=== PATIENT | male | born 1960 | race Caucasian/White ===

== ENCOUNTER 2018-06-25 05:20 | Inpatient (IN) | payer OTHER ==
[~2018-06-25] VITALS: Ht 172.7 cm; Wt 95.3 kg
[~2018-06-25 05:20] MED LIST: ASA81 PO; CYM30 PO; GABA-529 PO; HYDR-4272 PO; KETO1SPR NS; LANS15CA14 PO; LOSA100T3 PO; ROSU20TA PO; TIZA4TAB11 PO
[2018-06-25] MEDS ORDERED: CEFAZOLIN 1 GM IVPB PREMIX 50 ML IV ONE (08:00)
[2018-06-25] MEDS ORDERED: LR 1,000 ML IV SCH (12:56)
[2018-06-25] MEDS ORDERED: ONDANSETRON HCL 4 MG/2 ML VIAL IVP PRN (13:00)
[2018-06-25] MEDS ORDERED: HYDROmorphone 2 MG/ML VIAL IVP PRN (13:00)
[2018-06-25] MEDS ORDERED: HYDROmorphone 1 MG INJ. 1 MG/ML AMPUL IVP PRN ×2 (13:00)
[2018-06-25] MEDS ORDERED: LR 1,000 ML IV.SOLN IV ONE (13:35)
[2018-06-25] MEDS ORDERED: fentaNYL CITRATE 250 MCG/5 ML AMP ONE (13:35)
[2018-06-25] MEDS ORDERED: ONDANSETRON HCL 4 MG/2 ML VIAL ONE ×2 (13:35→14:36)
[2018-06-25] MEDS ORDERED: PROPOFOL 200MG/ 20ML VIAL (DIPRIVAN) IV ONE (13:35)
[2018-06-25] MEDS ORDERED: SUCCINYLCHOLINE CHLORIDE 20 MG/ML(QUELICIN) ONE (13:35)
[2018-06-25] MEDS ORDERED: MIDAZOLAM HCL 5 MG/ML VIAL (VERSED) IV ONE (13:35)
[2018-06-25] MEDS ORDERED: BACITRACIN 1 GM OINT TP ONE (13:35)
[2018-06-25] MEDS ORDERED: DEXAMETHASONE SOD PHOSPHATE 4 MG/ML VIAL ONE (13:35)
[2018-06-25] MEDS ORDERED: SEVOFLURANE 15 MIN GAS INH ONE (13:35)
[2018-06-25] MEDS ORDERED: NS IRRIG SOLN 1000 ML IR ONE (13:35)
[2018-06-25] MEDS ORDERED: LIDOCAINE/EPI 1% 1:100000 20 ML VIAL INJ ONE (13:35)
[2018-06-25] MEDS ORDERED: ONDANSETRON 4 MG ODT TAB PO PRN (13:45)
[2018-06-25 15:32] VITALS: BP_SYST 129
[2018-06-25 16:04] VITALS: BP_SYST 126
[2018-06-25] MEDS: HYDROcodone/ACETAMIN 5-325 MG TAB (NORCO/ VICODIN) PO PRN (16:19)
[2018-06-25] MEDS: MORPHINE 4 MG/ML INJ. SYRINGE IVP PRN ×3 (16:44→21:56)
[2018-06-25] MEDS: KCL 20 mEq in D5/0.45NS 1000mL 1,000 ML IV SCH ×2 (17:18→20:18)
[2018-06-25 19:00] VITALS: BP_SYST 126
[2018-06-25] MEDS ORDERED: NITROGLYCERIN 0.4 MG TAB.SUBL SL PRN (19:15)
[2018-06-25 19:19] LABS: BASOPHILS % (AUTO) 0.2 % (0.0-2.0); EOSINOPHILS % (AUTO) 0.1 % (0.0-4.0); HEMATOCRIT 44.6 % (36-54); HEMOGLOBIN 14.9 g/dL (14.0-18.0); LYMPHOCYTES # (AUTO) 0.4 K/uL (1.0-5.5); LYMPHOCYTES % (AUTO) 3.2 % (20.5-51.5); MEAN CORPUSCULAR HEMOGLOBIN 29 pg (27-31); MEAN CORPUSCULAR HGB CONC 34 % (32-36); MEAN CORPUSCULAR VOLUME 86 fL (79.0-98.0); MONOCYTES # (AUTO) 0.3 K/uL (0.0-1.0); MONOCYTES % (AUTO) 2.7 % (1.7-9.3); NEUTROPHILS # (AUTO) 11.6 K/uL (1.8-7.7); NEUTROPHILS % (AUTO) 93.8 % (40.0-70.0); PLATELET COUNT (AUTO) 195 K/uL (130-430); RED BLOOD CELL COUNT(AUTO) 5.21 MIL/uL (4.2-6.2); RED CELL DISTRIBUTION WIDTH 12.9 % (9.0-15.0); WHITE BLOOD COUNT (AUTO) 12.3 K/uL (4.8-10.8)
[2018-06-25 19:22] LABS: CREATININE 1.21 mg/dL (0.55-1.30); POTASSIUM 3.6 mmol/L (3.5-5.1)
[2018-06-25 19:27] LABS: ALBUMIN 3.4 g/dL (3.4-4.8); TOTAL BILIRUBIN 1.3 mg/dL (0.0-1.0)
[2018-06-25] MEDS: ONDANSETRON HCL 4 MG/2 ML VIAL IVP PRN (19:43)
[2018-06-25 20:00] VITALS: BP_SYST 128
[2018-06-25] MEDS: tiZANidine HCL 4 MG TABLET PO SCH (21:00)
[2018-06-25 21:11] LABS: ALBUMIN 3.3 g/dL (3.4-4.8); CALCIUM 8.1 mg/dL (8.4-11.0)
[2018-06-25] MEDS: GABAPENTIN 100 MG CAPSULE PO SCH (21:39)
[2018-06-25] MEDS: CALCIUM 500 MG/TAB PO SCH (21:40)
[2018-06-25] MEDS ORDERED: ASPIRIN 81 MG TAB.CHEW PO ONE (22:30)
[2018-06-25] MEDS ORDERED: ENOXAPARIN SODIUM 30 MG/0.3 ML SYRINGE SUBCUT ONE (23:15)
[2018-06-25 23:21] VITALS: BP_SYST 108
[2018-06-26] VITALS (17 sets, daily range): BP systolic 76–118
[2018-06-26] MEDS ORDERED: ASPIRIN 81 MG TAB.CHEW PO ONE (00:15)
[2018-06-26] MEDS ORDERED: ENOXAPARIN SODIUM 30 MG/0.3 ML SYRINGE SUBCUT ONE (00:15)
[2018-06-26] MEDS: MORPHINE 4 MG/ML INJ. SYRINGE IVP PRN ×5 (00:31→10:31)
[2018-06-26] MEDS: KCL 20 mEq in D5/0.45NS 1000mL 1,000 ML IV SCH ×3 (00:37→21:10)
[2018-06-26 01:05] LABS: BILIRUBIN,URINE NEGATIVE (NEGATIVE); BLOOD, URINE NEGATIVE (NEGATIVE); CLARITY/URINE CLEAR (CLEAR); COLOR,URINE YELLOW (YELLOW); GLUCOSE,URINE NEGATIVE (NEGATIVE); KETONES,URINE NEGATIVE (NEGATIVE); LEUKOCYTE ESTERASE ,URINE NEGATIVE (NEGATIVE); NITRITE, URINE NEGATIVE (NEGATIVE); PROTEIN URINE NEGATIVE (NEGATIVE)
[2018-06-26] MEDS: CARVEDILOL 6.25 MG TABLET (COREG) PO SCH ×2 (03:38→10:32)
[2018-06-26] MEDS: LEVOTHYROXINE SODIUM 0.15 MG TABLET PO SCH (05:32)
[2018-06-26 07:39] LABS: PHOSPHORUS 3.1 mg/dL (2.7-4.5)
[2018-06-26] MEDS: GABAPENTIN 100 MG CAPSULE PO SCH ×3 (08:21→23:17)
[2018-06-26] MEDS: tiZANidine HCL 4 MG TABLET PO SCH ×2 (08:22→21:09)
[2018-06-26] MEDS: CALCIUM 500 MG/TAB PO SCH ×3 (08:22→21:08)
[2018-06-26] MEDS: ENOXAPARIN SODIUM 100 MG/ML SYRINGE SUBCUT SCH ×2 (08:35→21:12)
[2018-06-26] MEDS ORDERED: ASPIRIN 81 MG TAB.CHEW PO SCH (09:00)
[2018-06-26] MEDS ORDERED: LOSARTAN POTASSIUM 50 MG TABLET (COZAAR) PO SCH (09:00)
[2018-06-26] MEDS ORDERED: ATORVASTATIN 20 MG TABLET PO SCH (09:00)
[2018-06-26] MEDS ORDERED: PANTOPRAZOLE SODIUM 40 MG TAB PO SCH (09:00)
[2018-06-26] MEDS ORDERED: DULoxetine HCL 30 MG CAPSULE.DR (CYMBALTA) PO SCH (09:00)
[2018-06-26 10:54] LABS: CALCIUM 7.6 mg/dL (8.4-11.0)
[2018-06-26] MEDS: ONDANSETRON HCL 4 MG/2 ML VIAL IVP PRN (11:16)
[2018-06-26] MEDS ORDERED: NS 500 ML IV ONE ×3 (14:00→23:15)
[2018-06-26 15:35] LABS: BASOPHILS % (AUTO) 0.4 % (0.0-2.0); EOSINOPHILS % (AUTO) 0.2 % (0.0-4.0); HEMATOCRIT 40.7 % (36-54); HEMOGLOBIN 13.5 g/dL (14.0-18.0); LYMPHOCYTES % (AUTO) 9.9 % (20.5-51.5); MEAN CORPUSCULAR HEMOGLOBIN 29 pg (27-31); MEAN CORPUSCULAR HGB CONC 33 % (32-36); MONOCYTES # (AUTO) 0.5 K/uL (0.0-1.0); NEUTROPHILS # (AUTO) 8.1 K/uL (1.8-7.7); NEUTROPHILS % (AUTO) 84.5 % (40.0-70.0); PLATELET COUNT (AUTO) 171 K/uL (130-430); RED BLOOD CELL COUNT(AUTO) 4.63 MIL/uL (4.2-6.2); RED CELL DISTRIBUTION WIDTH 12.7 % (9.0-15.0); WHITE BLOOD COUNT (AUTO) 9.6 K/uL (4.8-10.8)
[2018-06-26 15:37] LABS: MEAN CORPUSCULAR VOLUME 88 fL (79.0-98.0)
[2018-06-26] MEDS: HYDROcodone/ACETAMIN 5-325 MG TAB (NORCO/ VICODIN) PO PRN (19:11)
[2018-06-26] MEDS ORDERED: CARVEDILOL 3.125 MG TABLET (COREG) PO SCH (21:00)
[2018-06-26 21:22] LABS: ALBUMIN 2.8 g/dL (3.4-4.8); CALCIUM 7.4 mg/dL (8.4-11.0)
[2018-06-26] MEDS ORDERED: NACL 0.9% 1,000 ML IV SCH ×2 (22:45→23:15)
[2018-06-26] MEDS ORDERED: NACL 0.9% 500 ML IV SCH ×2 (23:00→23:45)
[2018-06-26] MEDS ORDERED: NACL 0.9% 500 ML IV ONE (23:00)
[2018-06-27] VITALS (7 sets, daily range): BP systolic 87–122
[2018-06-27] MEDS: KCL 20 mEq in D5/0.45NS 1000mL 1,000 ML IV SCH (04:40)
[2018-06-27 05:51] LABS: BASOPHILS % (AUTO) 0.7 % (0.0-2.0); HEMATOCRIT 39.8 % (36-54); HEMOGLOBIN 13.1 g/dL (14.0-18.0); LYMPHOCYTES # (AUTO) 1.2 K/uL (1.0-5.5); MEAN CORPUSCULAR HEMOGLOBIN 29 pg (27-31); MEAN CORPUSCULAR HGB CONC 33 % (32-36); MEAN CORPUSCULAR VOLUME 88 fL (79.0-98.0); MONOCYTES # (AUTO) 0.6 K/uL (0.0-1.0); MONOCYTES % (AUTO) 7.3 % (1.7-9.3); PLATELET COUNT (AUTO) 157 K/uL (130-430); RED BLOOD CELL COUNT(AUTO) 4.55 MIL/uL (4.2-6.2); RED CELL DISTRIBUTION WIDTH 13.1 % (9.0-15.0)
[2018-06-27 06:06] LABS: PROTHROMBIN TIME 10.4 SECS (9.5-12.5)
[2018-06-27 06:11] LABS: CALCIUM 7.6 mg/dL (8.4-11.0); CREATININE 0.87 mg/dL (0.55-1.30); POTASSIUM 4.2 mmol/L (3.5-5.1)
[2018-06-27 06:24] LABS: ALBUMIN 2.9 g/dL (3.4-4.8)
[2018-06-27] MEDS: LEVOTHYROXINE SODIUM 0.15 MG TABLET PO SCH (06:46)
[2018-06-27 07:21] LABS: EOSINOPHILS # (AUTO) 0.1 K/uL (0.0-0.4); NEUTROPHILS # (AUTO) 6.1 K/uL (1.8-7.7)
[2018-06-27 07:22] LABS: WHITE BLOOD COUNT (AUTO) 8.4 K/uL (4.8-10.8)
== END 2018-06-27 07:37 | disposition short-term general hospital (02) | DRG 625 ==
LOC: SMU 05:20 → SDS 05:20 → STU 11:30 → SMU 11:30 → SDS 18:11 → STU 18:11 → SIC 06-26 15:18
PROVIDERS: ADMIT Otolaryngology; ATTEND Otolaryngology
PROC: 0GTH0ZZ Resection of Right Thyroid Gland Lobe, Open Approach (ICD-10-PCS; 2018-06-25)
PROC: 4A11X4G Monitoring of Peripheral Nervous Electrical Activity, Intraoperative, External Approach (ICD-10-PCS; 2018-06-25)
PROC: 0GTG0ZZ Resection of Left Thyroid Gland Lobe, Open Approach (ICD-10-PCS; principal; 2018-06-25 07:30)
DX: E04.2 Nontoxic multinodular goiter (principal); I21.4 Non-ST elevation (NSTEMI) myocardial infarction; I25.10 Atherosclerotic heart disease of native coronary artery without angina pectoris; E78.5 Hyperlipidemia, unspecified; G89.4 Chronic pain syndrome; I10 Essential (primary) hypertension; F32.9 Major depressive disorder, single episode, unspecified; Z95.5 Presence of coronary angioplasty implant and graft; Z79.899 Other long term (current) drug therapy; Z79.82 Long term (current) use of aspirin; Z87.891 Personal history of nicotine dependence; Z90.49 Acquired absence of other specified parts of digestive tract; Z86.010 Personal history of colon polyps
CPT/HCPCS: 36415; 71046-TC; 80048; 80053; 80061; 81003; 82040-TC; 82310-TC; 83735-TC; 83970; 84100-TC; 84484; 85025; 85610-TC; 87081; 88307; 93005; 93306; C1782; G0378; J0330; J0690; J1100; J1650; J2250; J2270; J2405; J2704; J3010; J7040; J7120; Q0162